=== PATIENT | male | born 1940 | race Caucasian/White ===

== ENCOUNTER 2019-11-18 05:17 | Inpatient (IN) | payer MEDICARE ==
[2019-11-10 14:00] LABS: BASOPHILS % (AUTO) 0.6 % (0-1); EOSINOPHILS # (AUTO) 0.3 X10'3 (0-0.9); EOSINOPHILS % (AUTO) 3.8 % (0-6); LYMPHOCYTES # (AUTO) 2.3 X10'3 (1.1-4.8); LYMPHOCYTES % (AUTO) 30.3 % (21-51); MEAN CORPUSCULAR HEMOGLOBIN 31.9 PG (27.0-31.0); MEAN CORPUSCULAR HGB CONC 33.5 g/dL (33.0-36.5); MEAN CORPUSCULAR VOLUME 95.1 FL (78-98); MEAN PLATELET VOLUME 7.6 FL (7.4-10.4); MONOCYTES # (AUTO) 0.7 X10'3 (0-0.9); MONOCYTES % (AUTO) 8.9 % (2-12); NEUTROPHILS # (AUTO) 4.2 X10'3 (1.8-7.7); NEUTROPHILS % (AUTO) 56.4 % (42-75); PRE OP HEMATOCRIT 39.9 % (42.0-52.0); PRE OP HEMOGLOBIN 13.4 g/dL (14.0-17.9); PRE OP PLATELET COUNT 190 X10'3 (140-440); RED CELL DISTRIBUTION WIDTH 13.5 % (11.5-14.5)
[2019-11-10 14:18] LABS: PRE OP PROTIME 20.9 SECONDS (9.0-12.0)
[2019-11-10 14:19] LABS: PRE OP INR 2.1 INR
[2019-11-10 14:23] LABS: ALBUMIN 3.6 G/DL (3.4-5.0); ALBUMIN/GLOBULIN RATIO 1.1 (1.1-1.5); ALKALINE PHOSPHATASE 74 IU/L (46-116); BLOOD UREA NITROGEN 19 MG/DL (7-18); BUN/CREATININE RATIO 12.9 (5.4-32.0); CALCIUM 8.6 MG/DL (8.5-10.1); CREATININE 1.47 MG/DL (0.60-1.10); PRE OP ALT 63 U/L (30-65); PRE OP AST 37 U/L (10-37); PRE OP BILIRUB, TOTAL 0.5 MG/DL (0.0-1.0); PRE OP GLUCOSE 90 MG/DL (70-104); TOTAL CARBON DIOXIDE 25.7 MMOL/L (24-32); TOTAL PROTEIN 6.8 G/DL (6.4-8.2); eGFR 46 ML/MIN
[2019-11-10 14:36] LABS: CHLORIDE 108 MMOL/L (99-107); PRE OP ANION GAP 9 (8-16); PRE OP POTASSIUM 4.2 MMOL/L (3.4-5.1); PRE OP SODIUM 143 MMOL/L (135-145)
[~2019-11-18] VITALS: Ht 175.3 cm; Wt 89.0 kg
[2019-11-18] VITALS (20 sets, daily range): BP systolic 124–166; BP diastolic 55–86
[~2019-11-18 05:17] MED LIST: ASPI-1265 PO; CALC-1051 PO; CHOL20004 PO; CLON-529 PO; FLEC100T PO; LEVO112T39 PO; LISI-604 PO; MAGN400C PO; METO50TA7 PO; OMEG1CAP46 PO; OMEP20TA5 PO; PRAV20TA PO; VARD20TA31 PO; VITAMIN B12 SHOT IM; WARF-55 PO; [UNRECOGNIZED DRUG - OTHER]; [UNRECOGNIZED DRUG - OTHER] PO; ringers solution, lacted 1,000 ML IV SCH
[2019-11-18] MEDS ORDERED: vancomycin 1,500 MG in NS 300ml IV soln IV ONE (05:30)
[2019-11-18] MEDS ORDERED: famotidine 20mg tablet PO ONE (05:30)
[2019-11-18] MEDS ORDERED: DOCUMENT DATE & TIME OF BETA-BLOCKER PO ONE (05:30)
[2019-11-18] MEDS ORDERED: ceFAZolin 2gm in dextrose, iso 50 ML IV ONE (05:30)
[2019-11-18] MEDS ORDERED: mineral oil 10ml sterile, topical TP ONE (06:43)
[2019-11-18] MEDS ORDERED: tetracaine 1% (10mg/ml) pres. free inj. ONE (07:06)
[2019-11-18] MEDS ORDERED: fentaNYL/PF 50MCG/1 ML 2ML syringe ONE (07:08)
[2019-11-18] MEDS ORDERED: MIDAZolam 1mg/ml 10ml vial ONE (07:08)
[2019-11-18] MEDS ORDERED: ROPIVAcaine 0.5% (5mg/ml) 30ml vial ONE ×2 (07:09)
[2019-11-18 07:17] LABS: PRE OP INR 1.2 INR; PRE OP PROTIME 11.9 SECONDS (9.0-12.0)
[2019-11-18] MEDS ORDERED: ringers solution, lacted 1,000 ML IV SCH (07:44)
[2019-11-18] MEDS ORDERED: labetalol 20mg/4ml (5mg/ml) syringe IV PRN (07:45)
[2019-11-18] MEDS ORDERED: fentaNYL/PF 50MCG/1 ML 2ML syringe IV PRN ×2 (07:45)
[2019-11-18] MEDS ORDERED: morphine 2 MG/ML inj. syringe IV PRN (07:45)
[2019-11-18] MEDS ORDERED: hydrALAZINE 20mg/ml inj. IV PRN (07:45)
[2019-11-18] MEDS ORDERED: ondansetron/PF 4mg/2ml inj IV PRN ×2 (07:45→11:15)
[2019-11-18] MEDS ORDERED: morphine 4 MG/ML inj SYRINge IV PRN (07:45)
[2019-11-18] MEDS ORDERED: ceFAZolin 1000mg inj ONE (10:20)
--- NOTE | 2019-11-18 11:01 | NUR ---
Received from OR via [facility] , accompanied by Anesthesiologist MONICA and report given by Anesthesiolgist. PATIENT WITH VSS. DENIES PAIN. RIGHT LE IN SPLINT WITH + CAP REFILL AND NO SENSATION BELOW THE KNEE. FOOT OF BED GATCHED Addendum: 11/18/19 at 1115 by Florentino Valencia RN, RN Amended: Links added.
[2019-11-18] MEDS ORDERED: HYDROcodone/acetaminophen 10/325mg tab PO PRN ×2 (11:15)
[2019-11-18] MEDS ORDERED: magnesium hydroxide 30ml (MOM) UD suspension PO PRN (11:15)
[2019-11-18] MEDS ORDERED: CADD PCA waste documentation MC PRN (11:15)
[2019-11-18] MEDS ORDERED: VARDENAFIL HCL 20 MG PO PRN (11:15)
[2019-11-18] MEDS ORDERED: bisacodyl 10mg suppository rectal RC PRN (11:15)
[2019-11-18] MEDS ORDERED: acetaminophen 325mg tablet PO PRN (11:15)
[2019-11-18] MEDS ORDERED: diphenhydrAMINE 25mg capsule PO PRN ×2 (11:15)
[2019-11-18] MEDS ORDERED: naloxone 0.4 mg/ml inj IV PRN (11:15)
[2019-11-18] MEDS ORDERED: cloNIDine 0.1 mg tablet PO PRN (11:15)
[2019-11-18] MEDS ORDERED: mag hydrox/Alum hydrox/simeth 30ml oral suspension PO PRN (11:15)
[2019-11-18] MEDS: HYDROmorphone/NS 1 mg/ml CADD 50 ML IV SCH ×7 (13:00→23:00)
[2019-11-18] MEDS: potassium cl 20mEq in 1/2 NS 1,000 ML IV SCH ×3 (14:27→23:56)
[2019-11-18 14:56] LABS: BASOPHILS % (AUTO) 0.2 % (0-1); EOSINOPHILS % (AUTO) 0.3 % (0-6); HEMOGLOBIN 13.4 g/dl (14.0-17.9); LYMPHOCYTES % (AUTO) 10.9 % (21-51); MEAN CORPUSCULAR HGB CONC 33.6 g/dL (33.0-36.5); MEAN CORPUSCULAR VOLUME 95.2 FL (78-98); MEAN PLATELET VOLUME 7.6 FL (7.4-10.4); MONOCYTES # (AUTO) 0.4 X10'3 (0-0.9); MONOCYTES % (AUTO) 4.4 % (2-12); NEUTROPHILS # (AUTO) 8.1 X10'3 (1.8-7.7); NEUTROPHILS % (AUTO) 84.2 % (42-75); PLATELET COUNT 214 X10'3 (140-440); RED CELL DISTRIBUTION WIDTH 13.5 % (11.5-14.5); WHITE BLOOD COUNT 9.6 X10'3 (4.5-11.0)
[2019-11-18] MEDS: enoxaparin 40mg/0.4ml syringe SQ SCH (15:10)
[2019-11-18] MEDS: ceFAZolin 1GM/D5W- ADD-VANTAGE 50 ML IV SCH ×2 (16:30→23:56)
--- NOTE | 2019-11-18 18:23 | NUR ---
Problems reprioritized. Patient report given, questions answered & plan of care reviewed with Karyna HWANG.
--- NOTE | 2019-11-18 18:30 | NUR ---
Patient in room ORTHO 4021. I have received report from ERI Crane and had the opportunity to ask questions and assume patient care.
[2019-11-18] MEDS ORDERED: vancomycin/NS 1 GM ADD-VANTAGE 250 ML IV SCH (20:00)
[2019-11-18] MEDS: sennosides/docusate sodium tablet PO SCH (20:00)
[2019-11-18] MEDS: ascorbic acid 500mg tablet PO SCH (20:20)
[2019-11-18] MEDS: flecainide 50mg tablet PO SCH (20:20)
[2019-11-18] MEDS ORDERED: warfarin 5mg tablet PO SCH (21:00)
[2019-11-18] MEDS ORDERED: sennosides 8.6mg tablet PO SCH (21:00)
[2019-11-19] MEDS: HYDROmorphone/NS 1 mg/ml CADD 50 ML IV SCH ×7 (01:00→13:00)
[2019-11-19 02:00] VITALS: BP 150/64
[2019-11-19 06:00] VITALS: BP 151/69
[2019-11-19 06:27] LABS: BASOPHILS % (AUTO) 0.1 % (0-1); EOSINOPHILS % (AUTO) 0.1 % (0-6); HEMATOCRIT 38.1 % (42.0-52.0); HEMOGLOBIN 12.9 g/dl (14.0-17.9); LYMPHOCYTES # (AUTO) 2.7 X10'3 (1.1-4.8); LYMPHOCYTES % (AUTO) 21.5 % (21-51); MEAN CORPUSCULAR HEMOGLOBIN 32.4 PG (27.0-31.0); MEAN CORPUSCULAR VOLUME 95.4 FL (78-98); MEAN PLATELET VOLUME 7.4 FL (7.4-10.4); MONOCYTES # (AUTO) 1.3 X10'3 (0-0.9); MONOCYTES % (AUTO) 10.4 % (2-12); NEUTROPHILS # (AUTO) 8.4 X10'3 (1.8-7.7); NEUTROPHILS % (AUTO) 67.9 % (42-75); PLATELET COUNT 220 X10'3 (140-440); RED BLOOD COUNT 3.99 X10'6 (4.70-6.10); RED CELL DISTRIBUTION WIDTH 13.5 % (11.5-14.5); WHITE BLOOD COUNT 12.4 X10'3 (4.5-11.0)
--- NOTE | 2019-11-19 06:36 | NUR ---
Problems reprioritized. Patient report given, questions answered & plan of care reviewed with ERI Arias.
[2019-11-19 06:46] LABS: ANION GAP 9 (8-16); CHLORIDE 109 MMOL/L (99-107); POTASSIUM 4.1 MMOL/L (3.5-5.1); SODIUM 143 MMOL/L (135-145); TOTAL CARBON DIOXIDE 25.2 MMOL/L (24-32)
[2019-11-19] MEDS ORDERED: multivitamins, therapeutics tablet PO SCH (08:00)
[2019-11-19] MEDS ORDERED: lisinopril 5mg tablet PO SCH (08:00)
[2019-11-19] MEDS ORDERED: magnesium oxide 400mg tablet PO SCH (08:00)
[2019-11-19] MEDS ORDERED: OMEGA-3/DHA/EPA/FISH OIL 1 EACH CAPSULE.DR PO SCH (08:00)
[2019-11-19] MEDS ORDERED: levoTHYROXINE 112mcg tablet PO SCH (08:00)
[2019-11-19] MEDS: enoxaparin 40mg/0.4ml syringe SQ SCH (08:00)
[2019-11-19] MEDS ORDERED: atorvastatin 10mg tablet PO SCH (08:00)
[2019-11-19] MEDS ORDERED: calcium carbonate/vitamin D3 tablet PO SCH (08:00)
[2019-11-19] MEDS ORDERED: RANITIDINE 150 MG PO SCH (08:00)
[2019-11-19] MEDS ORDERED: pantoprazole 40mg Tablet.DR PO SCH (08:00)
[2019-11-19] MEDS ORDERED: vitamin D (cholecalciferol) 1,000 unit tablet PO SCH (08:00)
[2019-11-19] MEDS ORDERED: metoprolol succinate 25mg (24-HOUR) SR. Tablet PO SCH (08:00)
[2019-11-19] MEDS: sennosides/docusate sodium tablet PO SCH (09:52)
[2019-11-19] MEDS: ascorbic acid 500mg tablet PO SCH (09:53)
[2019-11-19] MEDS: flecainide 50mg tablet PO SCH (09:53)
[2019-11-19 10:00] VITALS: BP 144/62
--- NOTE | 2019-11-19 14:32 | NUR ---
Pt on regular diet documented with 100% PO intake meeting increased protein needs for wound healing. Pt pending discharge at this time. Will continue to follow. Addendum: 11/19/19 at [address] Amended: Links added.
--- NOTE | 2019-11-19 15:07 | NUR ---
20 GAUGE IV DISCONTINUED, PATIENT TOLERATED WELL, WELLED OUT TO RIDE. Addendum: 11/19/19 at 1606 by Juana Ralph RN WHEELED OUT IN A WHEEL CHAIR OUT TO RIDE.
--- NOTE | 2019-11-24 13:29 | NUR ---
Case Management DC follow up: Status post: arthodesis of R ankle r/t osteoarthritis. Spoke to pt via telephone, reports:"painful. swollen, purple, red, a little warm, but not hot to the touch" pt denies "weeping" at surge site, just looks "ugly". pt contacted Dr Delicia rey to relay s/s, told to "keep and eye on it". Went over extensively s/s of infection, if worsening pain, swelling, color, temp, call office again, come into the ER. Denies: acute/continuous cp, emergent SOB, acute general pain, resp distress, CÁRDENAS, N/V, vertigo, sycope episodes, blurry vision, weakness, abd pain, distension, bladder pain, dysuria, frequency, urgency, hematuria, unexplained bleeding, bruising,fever. Verbalizes understanding of s/s that would warrant -/ER visit for evaluation. Verbalizes understanding of Rx, why prescribed, resumes current Rx as ordered, denies ase r/t polypharmacy. Acknowledges need to schedule/keep follow up appts w/PCP/Mer. Dr Nesbitt appt 3 wks from surgery date. PT at [facility] in [place] does not have order yet from Dr Nesbitt office. pt verbalizes compliant w/aftercare protocol, but may not have iced and elevated as much the first few days home r/t pain. pt stated low grade temp today at 99.7 which is elevated from yesterday when called w/concerns to Dr Nesbitt office. Pt agrees to call Dr Nesbitt office after hanging up from this call. Pt does exercises as directed in DC orders. Needs met, questions answered at DC, no further questions r/t post status DC at this time.
== END 2019-11-19 15:07 | disposition home or self-care (01) | DRG 469 ==
LOC: PAS 05:17 → OBSVTOIN 11:26 → ORTHO 4S 11:26
PROVIDERS: ADMIT Orthopaedic Surgery; ATTEND Orthopaedic Surgery
PROC: 0L8N0ZZ Division of Right Lower Leg Tendon, Open Approach (ICD-10-PCS; 2019-11-18)
PROC: 3E0T3BZ Introduction of Anesthetic Agent into Peripheral Nerves and Plexi, Percutaneous Approach (ICD-10-PCS; 2019-11-18)
PROC: 0SRF0JZ Replacement of Right Ankle Joint with Synthetic Substitute, Open Approach (ICD-10-PCS; principal; 2019-11-18 07:14)
DX: M19.071 Primary osteoarthritis, right ankle and foot (principal); D62 Acute posthemorrhagic anemia; I48.20 Chronic atrial fibrillation, unspecified; M24.571 Contracture, right ankle; I12.9 Hypertensive chronic kidney disease with stage 1 through stage 4 chronic kidney disease, or unspecified chronic kidney disease; M19.072 Primary osteoarthritis, left ankle and foot; N18.9 Chronic kidney disease, unspecified; E66.8 Other obesity; D51.0 Vitamin B12 deficiency anemia due to intrinsic factor deficiency; M81.0 Age-related osteoporosis without current pathological fracture; E03.9 Hypothyroidism, unspecified; E78.5 Hyperlipidemia, unspecified; K21.9 Gastro-esophageal reflux disease without esophagitis; Z79.01 Long term (current) use of anticoagulants; Z79.899 Other long term (current) drug therapy; Z79.82 Long term (current) use of aspirin; Z87.891 Personal history of nicotine dependence; Z68.29 Body mass index [BMI] 29.0-29.9, adult
CPT/HCPCS: 36415; 73600; 76000; 80051; 80053; 82948; 85025; 85610; 85730; 93005; 96365; 96366; 96367; 96372; 96375; 97116; 97161; 97530; A4618; A6222; A6250; A6449; A6455; A7000; C1758; C1776; G0378; J0690; J1170; J1650; J2250; J2405; J2795; J3010; J3370; J3480; J7040; J7120